=== PATIENT | female | born 1970 | race Caucasian/White ===

== ENCOUNTER → 2017-04-13 | Outpatient (CLI) | payer OTHER ==
[~2017-04-13] MED LIST: BUPR-86 PO; IBUP-1484 PO; MULT-26 PO; OMEP20TA62 PO
== END | disposition home or self-care (01) ==
LOC: RAD 13:01
PROVIDERS: ATTEND Registered Nurse
DX: R51 Headache (principal)
CPT/HCPCS: 70450

== ENCOUNTER 2018-11-30 12:41 | Outpatient (CLI) | payer OTHER | END 2018-11-30 23:59 | disposition home or self-care (01) | LOC: CFH 12:41 | PROVIDERS: ATTEND Nurse Practitioner Family | DX: N64.4 Mastodynia (principal); Z98.82 Breast implant status | CPT/HCPCS: 77066; G0279 ==

== ENCOUNTER 2019-05-03 08:54 | Outpatient (CLI) | payer OTHER ==
[~2019-05-03 08:54] MED LIST changes: -IBUP-1484 PO; +IBUP-1902 PO
== END 2019-05-03 23:59 | disposition home or self-care (01) ==
LOC: CFH 08:54
PROVIDERS: ATTEND Nurse Practitioner Family
DX: R10.13 Epigastric pain (principal); R11.0 Nausea
CPT/HCPCS: 76700

== ENCOUNTER → 2019-08-29 | Outpatient (CLI) | payer OTHER ==
[~2019-08-29] MED LIST changes: +GADOTERATE 7.5 MMOL/15 ML SYR ONE
== END | disposition home or self-care (01) ==
LOC: RAD 14:30
PROVIDERS: ATTEND Registered Nurse
DX: G44.53 Primary thunderclap headache (principal); G93.89 Other specified disorders of brain
CPT/HCPCS: 70553; A9575

== ENCOUNTER → 2020-04-01 | Outpatient (CLI) | payer OTHER ==
[~2020-04-01] MED LIST changes: -GADOTERATE 7.5 MMOL/15 ML SYR ONE
== END | disposition home or self-care (01) ==
LOC: CFH 12:06
PROVIDERS: ATTEND Obstetrics & Gynecology
DX: Z12.31 Encounter for screening mammogram for malignant neoplasm of breast (principal)
CPT/HCPCS: 77063; 77067

== ENCOUNTER → 2020-04-07 | Outpatient (CLI) | payer OTHER ==
[2020-04-07 17:15] LABS: HCT (SEDRATE) 41.8 % (34.6-47.8)
[2020-04-07 17:16] LABS: BASOPHILS % (AUTO) 1 % (0-1); EOSINOPHILS % (AUTO) 2 % (1-7); LYMPHOCYTES % (AUTO) 24 % (22-44); MEAN CORPUSCULAR HEMOGLOBIN 30.6 pg (27.0-34.8); MEAN CORPUSCULAR HGB CONC 33.5 g/dL (32.4-35.8); MONOCYTES % (AUTO) 6 % (2-9); NEUTROPHILS % (AUTO) 67 % (42-75); PLATELET COUNT 239 x10^3/uL (130-400); RED BLOOD COUNT 4.54 x10^6/uL (3.82-5.3); RED CELL DISTRIBUTION WIDTH 12.8 % (9.6-15.2)
[2020-04-07 17:21] LABS: MD NO
[2020-04-07 17:31] LABS: ALBUMIN 3.9 g/dL (3.4-5.0); ANION GAP 4 mmol/L (5-15); CALCIUM 9.1 mg/dL (8.5-10.1); CHLORIDE 108 mmol/L (98-107)
[2020-04-07 17:56] LABS: ALANINE AMINOTRANSFERASE 24 U/L (12-78); ALKALINE PHOSPHATASE 78 U/L (45-117); BILIRUBIN, DIRECT 0.1 mg/dL (0.1-0.2); BILIRUBIN,TOTAL 0.4 mg/dL (0.2-1.0); CREATINE KINASE, TOTAL 77 U/L (26-192); CREATININE 0.85 mg/dL (0.55-1.02); FOLATE LEVEL 16.4 ng/mL (3.1-17.5); FREE T4 (FREE THYROXINE) 0.95 ng/dL (0.76-1.46); TOTAL PROTEIN 7.8 g/dL (6.4-8.2)
[2020-04-09 16:26] LABS: ANA SCREEN NEGATIVE (Negative)
== END | disposition home or self-care (01) ==
LOC: LAB 16:26
PROVIDERS: ATTEND Registered Nurse
DX: F48.8 Other specified nonpsychotic mental disorders (principal); G43.711 Chronic migraine without aura, intractable, with status migrainosus; M62.81 Muscle weakness (generalized); R53.83 Other fatigue
CPT/HCPCS: 36415; 80053; 82164; 82175; 82248; 82525; 82550; 82607; 82746; 83036; 83655; 83825; 84100; 84439; 84443; 85025; 85613; 85651; 85670; 85705; 85732; 86038; 86235; 86430; 86592

== ENCOUNTER → 2020-06-02 | Outpatient (CLI) | payer OTHER ==
[~2020-06-02] MED LIST changes: +GADOTERATE 7.5 MMOL/15 ML VIAL ONE
== END | disposition home or self-care (01) ==
LOC: RAD 16:25
PROVIDERS: ATTEND Registered Nurse
DX: M51.27 Other intervertebral disc displacement, lumbosacral region (principal); M51.34 Other intervertebral disc degeneration, thoracic region; M47.817 Spondylosis without myelopathy or radiculopathy, lumbosacral region; M48.07 Spinal stenosis, lumbosacral region
CPT/HCPCS: 72156; 72157; 72158; A9575

== ENCOUNTER → 2020-10-21 | Outpatient (CLI) | payer OTHER ==
[~2020-10-21] MED LIST changes: +GADOTERATE 10 MMOL/20ML SYR ONE; -GADOTERATE 7.5 MMOL/15 ML VIAL ONE
== END | disposition home or self-care (01) ==
LOC: CFH 10:32
PROVIDERS: ATTEND Registered Nurse
DX: F48.8 Other specified nonpsychotic mental disorders (principal)
CPT/HCPCS: 70553; A9575

== ENCOUNTER 2020-12-05 19:13 | Emergency (ER) | payer OTHER ==
[~2020-12-05] VITALS: Ht 167.6 cm; Wt 69.3 kg
[~2020-12-05 19:13] MED LIST changes: -GADOTERATE 10 MMOL/20ML SYR ONE
[2020-12-05 19:19] VITALS: BP 150/92
--- NOTE | 2020-12-05 21:03 | NUR ---
TO ROOM FROM LOBBY. NAD.
--- NOTE | 2020-12-05 21:13 | NUR ---
PT AWAKE AND ALERT, C/O SUDDEN ONSET OF CHEST PAIN EARLIER WHILE DRIVING TO [employer]. PT STATES IT WAS MIDSTERNAL, AND RADIATED TO ARM AND NECK. AT THIS TIME, PT SAYS SHE HAS A 2/10 PAIN LEVEL AND FEELS MUCH BETTER BUT WANTED IT TO BE CHECKED OUT.
--- NOTE | 2020-12-05 21:14 | NUR ---
PT PLACED ON CR MONITOR AND EKG IS DONE IN TRIAGE.
--- NOTE | 2020-12-05 21:51 | NUR ---
DIRECTOR DATA MANAGEMENT TO BEDSIDE AND LABS DRAWN.
[2020-12-05 21:52] LABS: BASOPHILS % (AUTO) 1 % (0-1); EOSINOPHILS % (AUTO) 1 % (1-7); LYMPHOCYTES % (AUTO) 25 % (22-44); MEAN CORPUSCULAR HEMOGLOBIN 31.1 pg (27.0-34.8); MEAN CORPUSCULAR HGB CONC 34.1 g/dL (32.4-35.8); MEAN PLATELET VOLUME 7.8 fL (7.4-10.4); MONOCYTES % (AUTO) 6 % (2-9); NEUTROPHILS % (AUTO) 67 % (42-75); PLATELET COUNT 236 x10^3/uL (130-400); RED BLOOD COUNT 4.91 x10^6/uL (3.82-5.3); RED CELL DISTRIBUTION WIDTH 12.6 % (9.6-15.2)
[2020-12-05 22:03] LABS: ALBUMIN 3.8 g/dL (3.4-5.0); ANION GAP 3 mmol/L (5-15); CALCIUM 9.3 mg/dL (8.5-10.1); CHLORIDE 108 mmol/L (98-107)
[2020-12-05 22:09] LABS: ALANINE AMINOTRANSFERASE 30 U/L (12-78); ALKALINE PHOSPHATASE 61 U/L (45-117); BILIRUBIN,TOTAL 0.5 mg/dL (0.2-1.0); CREATININE 0.91 mg/dL (0.55-1.02); TROPONIN I < 0.015 ng/mL (0.000-0.045)
--- NOTE | 2020-12-05 22:35 | NUR ---
F/U AND D/C INSTRUCTIONS GIVEN TO PT AND SHE V/U. PT D/C'D AND AMBULATED TO DISCHARGE DESK.
== END 2020-12-05 22:37 | disposition home or self-care (01) ==
LOC: ED 19:33
DX: R07.89 Other chest pain (principal)
CPT/HCPCS: 36415; 71045; 80053; 83735; 84484; 85025; 85379; 93005; 99285